=== PATIENT | female | born 1975 | race Caucasian/White ===

== ENCOUNTER 2017-11-04 23:47 | Inpatient (IN) | payer OTHER ==
[~2017-11-04] VITALS: Ht 170.2 cm; Wt 76.7 kg
--- NOTE | ~2017-11-04 | EKG ---
[address] [address] ELECTROCARDIOGRAM REPORT Name: NOELLE HILL Room #: 243- ADM IN M.R.#: [id number] Admission: 11/05/17 Attend Phys: Cade Vargas MD Discharge: Date of : 71 Report #: [id number] THIS REPORT FOR: //name// [facility] Test Date: 2017-11-05 Test Time: 18:59:10 Pat Name: NOELLE HILL Department: Room: 243 Gender: F Data Analytics Developer: Amanda VILLALOBOS : 1975 Requested By: Ameena Roldan Order Number: [id number] MD: Nathaniel Montez Measurements Intervals [place] Rate: 71 P: 39 ID: [id number] QRS: 64 QRSD: 93 T: 27 QT: 397 QTc: 432 Interpretive Statements Sinus rhythm Compared to ECG 11/05/2017 00:47:04 Ectopic atrial rhythm no longer present Myocardial infarct finding no longer present ST (T wave) deviation no longer present Electronically Signed On 11-06-2017 12:09:16 CDT by Nathaniel Montez [email or web address] <ELECTRONICALLY SIGNED> By: Nathaniel Montez MD 11/06/17 1209 [id number] 58 Nathaniel Montez MD /EPI
--- NOTE | ~2017-11-04 | EKG ---
[address] [address] ELECTROCARDIOGRAM REPORT Name: NOELLE HILL Denzel Room #: 243-P ADM IN M.R.#: [id number] Admission: 11/05/17 Attend Phys: Cade Vargas MD Discharge: Date of : 71 Report #: [id number] THIS REPORT FOR: //name// [facility] ED Test Date: 2017-11-05 Test Time: 00:47:04 Pat Name: NOELLE HILL Department: Room: 243 Gender: F Javascript Front End Developer: YOHANNES : 1975 Requested By: Teddy Tavarez Order Number: [id number] MD: Kody Chowdary Measurements Intervals [place] Rate: 67 P: 268 UT: 154 QRS: 257 QRSD: 86 T: -85 QT: 409 QTc: 432 Interpretive Statements Right and left arm electrode reversal, interpretation assumes no reversal Recommend repeat tracing Ectopic atrial rhythm Inferior infarct, age indeterminate Minimal ST elevation, anterior leads No previous ECG available for comparison Electronically Signed On 11-05-2017 8:29:50 CDT by Kody Chowdary [email or web address] <ELECTRONICALLY SIGNED> By: Kody Chowdary MD, [facility] 11/05/17 0829 [id number] [id number] Kody Chowdary MD, [facility] /EPI
[2017-11-05] VITALS (53 sets, daily range): BP systolic 72–144; BP diastolic 28–132
[2017-11-05 00:42] LABS: ABSOLUTE NEUTROPHILS 6.8 thou/uL (1.4-8.2); BASOPHILS 0.5 % (0.0-2.0); EOSINOPHILS 0.1 % (0.0-3.0); HEMATOCRIT 37.1 % (37.0-47.0); LYMPHOCYTES 22.2 % (24.0-44.0); MCH 31.8 pg (26.0-34.0); MCHC 35.1 g/dL (28.0-37.0); MCV 90.8 fL (80.0-100.0); MONOCYTES 7.6 % (1.0-8.0); PLATELET COUNT 230 thou/uL (150-400); POLYS 69.6 % (36.0-66.0); RBC 4.09 mil/uL (4.20-5.00); RDW 12.9 % (10.5-14.5); WBC 9.8 thou/uL (4.0-11.0)
[2017-11-05 00:50] LABS: ANION GAP 10 mmol/L (7-16); BUN 12 mg/dL (7-18); CALCIUM 9.2 mg/dL (8.5-10.1); CHLORIDE 100 mmol/L (98-107); CO2 25 mmol/L (21-32); GLUCOSE 149 mg/dL (74-106); POTASSIUM 3.5 mmol/L (3.5-5.1); SODIUM 135 mmol/L (136-145)
[2017-11-05 00:56] LABS: ALBUMIN 3.4 g/dL (3.4-5.0); SALICYLATE < 2.8 mg/dL (2.8-20.0); SGOT 18 U/L (15-37); SGPT 37 U/L (30-65); TOTAL BILIRUBIN 0.6 mg/dL (<0.1-1.0)
[2017-11-05 05:39] LABS: URINE BILIRUBIN NEGATIVE (Negative); URINE BLOOD NEGATIVE (Negative); URINE CLARITY CLEAR; URINE COLOR YELLOW; URINE GLUCOSE-RANDOM* NEGATIVE (Negative); URINE KETONES TRACE (Negative); URINE LEUKOCYTES-REFLEX NEGATIVE (Negative); URINE PROTEIN (DIPSTICK) NEGATIVE (Negative); URINE SPECIFIC GRAVITY <= 1.005 (1.005-1.035); URINE UROBILINOGEN 0.2 E.U./dl (0.2-1.0)
[2017-11-05 05:41] LABS: URINE NITRITE-REFLEX POSITIVE (Negative)
[2017-11-05 05:45] LABS: BACTERIA-REFLEX >30 Many /HPF (None Seen); COARSE GRANULAR CASTS 0-3 Few /LPF (None Seen); CRYSTALS None Seen /LPF (None Seen); MUCUS None Seen strn/LPF (None Seen); SQUAMOUS None Seen /LPF (0-3); URINE RBC None Seen /HPF (0-2); URINE WBC-REFLEX 0-5 Rare /HPF (0-5)
[2017-11-05 06:00] LABS: AMP/METHAMP Negative (Negative); BARBITURATES Negative (Negative); BENZODIAZEPINES Negative (Negative); COCAINE POSITIVE (Negative); METHADONE Negative (Negative); OPIATES Negative (Negative); PCP Negative (Negative)
[2017-11-06] VITALS (61 sets, daily range): BP systolic 81–123; BP diastolic 42–93
[2017-11-06 03:39] LABS: CALCIUM 8.7 mg/dL (8.5-10.1); CREATININE 0.9 mg/dL (0.6-1.0); POTASSIUM 3.9 mmol/L (3.5-5.1)
[2017-11-07] VITALS (12 sets, daily range): BP systolic 76–113; BP diastolic 53–80
[2017-11-08 05:00] VITALS: BP 72/43
[2017-11-08 05:30] VITALS: BP 103/65
[2017-11-08 07:15] VITALS: BP 109/65
[2017-11-09 20:11] VITALS: BP 96/64
[2017-11-10 06:25] VITALS: BP 91/62
[2017-11-10 07:31] VITALS: BP 77/50
[2017-11-10 07:46] VITALS: BP 93/58
[2017-11-10 11:20] VITALS: BP 96/62
[2017-11-10] MEDS ORDERED: SEROQUEL300 MG PO (13:50)
[2017-11-10] MEDS ORDERED: NEURONTIN600 MG PO (13:50)
[2017-11-10 15:20] VITALS: BP 102/63
== END 2017-11-10 18:19 | disposition short-term general hospital (02) | DRG 918 ==
LOC: ER 23:47 → EROBS 11-05 00:56 → ICU 11-05 00:56 → 4N 11-07 12:31
PROVIDERS: Emergency Medicine; Nurse Practitioner Family
DX: T42.8X2A Poisoning by antiparkinsonism drugs and other central muscle-tone depressants, intentional self-harm, initial encounter (principal); T43.592A Poisoning by other antipsychotics and neuroleptics, intentional self-harm, initial encounter; F32.9 Major depressive disorder, single episode, unspecified; B19.20 Unspecified viral hepatitis C without hepatic coma; F14.10 Cocaine abuse, uncomplicated; I95.9 Hypotension, unspecified; F10.10 Alcohol abuse, uncomplicated; Z88.2 Allergy status to sulfonamides; Z88.5 Allergy status to narcotic agent; Z88.8 Allergy status to other drugs, medicaments and biological substances; Y92.89 Other specified places as the place of occurrence of the external cause; Z28.21 Immunization not carried out because of patient refusal
CPT/HCPCS: 10078; 10790